=== PATIENT | male | born 1985 | race Caucasian/White ===

== ENCOUNTER 2017-04-30 14:36 | Emergency (ER) | payer MEDICAID, OTHER ==
[~2017-04-30] VITALS: Ht 172.7 cm; Wt 95.0 kg
[~2017-04-30 14:36] MED LIST: ALBU90AE IH; CEPH-569 PO; GEMF600T3 PO; Meclizine PO; omega 3
[2017-04-30 14:40] VITALS: BP 148/96
== END 2017-04-30 18:00 | disposition left against medical advice (07) ==
LOC: ER 14:49
DX: R53.1 Weakness (principal); Z53.21 Procedure and treatment not carried out due to patient leaving prior to being seen by health care provider

== ENCOUNTER 2023-10-11 13:27 | Emergency (ER) | payer BC, MEDICAID ==
[~2023-10-11] VITALS: Ht 182.9 cm; Wt 110.0 kg
[~2023-10-11 13:27] MED LIST changes: -GEMF600T3 PO; +GEMF600T90 PO
[2023-10-11 13:47] VITALS: O2SAT 98
[2023-10-11] MEDS: ONDANSETRON HCL 4MG/2ML INJ IV STA ×2 (13:52→15:53)
[2023-10-11 14:48] LABS: BASOPHILS % 0.4 % (0.0-2.0); EOSINOPHILS % 0.6 % (0.0-5.0); HEMATOCRIT. 41.5 % (42.0-52.0); HEMOGLOBIN. 14.7 g/dL (14.0-18.0); LYMPHOCYTES % 12.8 % (20.0-50.0); MEAN CORPUSCULAR HEMOGLOBIN 30.3 pg (28.0-32.0); MEAN CORPUSCULAR HGB CONC 35.6 g/dL (31.0-37.0); MEAN CORPUSCULAR VOLUME 85.3 fL (80.0-94.0); MEAN PLATELET VOLUME 7.6 fl (7.4-10.4); MONOCYTES % 4.5 % (2.0-8.0); NEUTROPHILS % 81.7 % (40.0-76.0); PLATELET 324 x1000/uL (130-400); RED BLOOD CELL COUNT 4.86 mill/uL (4.7-6.1); RED CELL DISTRIBUTION WIDTH 13.2 % (11.6-14.6); WHITE BLOOD COUNT 9.1 x1000/uL (4.5-11.0)
[2023-10-11 14:52] LABS: CHLORIDE 105 mEq/L (98-107); SODIUM 140 mEq/L (136-145)
[2023-10-11 14:53] LABS: CALCIUM 9.8 mg/dL (8.7-10.4); CARBON DIOXIDE 26 mEq/L (21-32)
[2023-10-11 14:58] LABS: CREATININE 0.8 mg/dL (0.6-1.3); GLUCOSE 109 mg/dL (70-105); UREA NITROGEN BLOOD 8 mg/dL (9-23)
[2023-10-11 14:59] LABS: PROTHROMBIN TIME 11.3 sec (9.6-11.0)
[2023-10-11 15:00] LABS: ALANINE AMINOTRANSFERASE 32 IU/L (10-49); ALBUMIN 5.6 g/dL (3.2-4.8); ASPARTATE AMINOTRANSFERASE 19 IU/L (<34); BILIRUBIN DIRECT 0.1 mg/dL (<=3.0); BILIRUBIN TOTAL 0.4 mg/dL (0.1-1.0); PROTEIN TOTAL 8.4 g/dL (6.0-8.3)
[2023-10-11 15:10] LABS: ETHANOL BLOOD < 10 mg/dL (<10)
[2023-10-11 15:43] LABS: CLARITY URINE CLEAR (CLEAR); COLOR URINE YELLOW (YELLOW); GLUCOSE URINE NEGATIVE (NEGATIVE); KETONES URINE NEGATIVE (NEGATIVE); LEUKOCYTE ESTERASE URINE NEGATIVE (NEGATIVE); NITRITE URINE NEGATIVE (NEGATIVE); OCCULT BLOOD URINE NEGATIVE (NEGATIVE); PROTEIN URINE NEGATIVE (NEGATIVE); SPECIFIC GRAVITY URINE 1.005 (1.005-1.030); UROBILINOGEN URINE 0.2 E.U./dL (0.2-1.0)
[2023-10-11] MEDS: MAGNESIUM/ALUMINUM HYDROXIDE/SIMETHICONE 30ML UDC PO STA (15:54)
[2023-10-11] MEDS: DICYCLOMINE 10 MG/5 ML ORAL SYR PO STA (15:54)
[2023-10-11 16:30] VITALS: TEMP 98.1
[2023-10-11] MEDS ORDERED: ONDA4TAB11 PO (17:38)
[2023-10-11 17:50] VITALS: BP 134/83; PULSE 90; RESP 16
== END 2023-10-11 18:04 | disposition home or self-care (01) ==
LOC: ER 13:27
DX: K52.9 Noninfective gastroenteritis and colitis, unspecified (principal); E78.00 Pure hypercholesterolemia, unspecified; Z98.890 Other specified postprocedural states
CPT/HCPCS: 80076; 80048; 81003; 80320; 83690; 85025; 85610; 36415; 70360; 71045; 74018; 70450; 93005; 96374; 99285; J2405; Z7610 ×3; G0480